=== PATIENT | female | born 1990 | race Caucasian/White ===

== ENCOUNTER → 2017-06-07 | Outpatient (CLI) | payer OTHER ==
--- NOTE | ~2017-06-07 | MR32 ---
[facility] A Service of [facility] & [facility] RADIOLOGY TEXT RESULTS PATIENT: VESTA MONAHAN LOCATION: [facility] : [birth year] UNIT #: [id number] AGE: [address]: Shreyas Lau MD SEX: F ORDER DR: [id number] [address] [id number] O MR#: [id number] Acc #: [id number] NAME: VETSA MONAHAN : 1990 SEX: F STUDY DATE/TIME: 06/07/2017 12:14 UNIT: [facility] ROOM: STUDY DESCRIPTION: MR Cervical Wo Contrast Attending Physician: Shreyas Lau M.D. Referring Physician: Shreyas Lau M.D. Ordering Physician: Shreyas Lau M.D. Primary Care Physician: Shreyas Lau M.D. MRI CENTER REPORT This report is preliminary unless electronic signature is present. EXAM MRI of the cervical spine without contrast dated 06/07/2017 COMPARISON Plain film cervical spine dated 05/16/2017. HISTORY Pain, numbness and tingling in the neck extending to the left shoulder and arm for 4-5 months. Family history of Chiari malformation. FINDINGS Multisequence, multiplanar imaging of the cervical spine was obtained without contrast. Vertebral body heights and alignment are preserved. Mild degenerative disc signal loss is noted at C3-4. Cord demonstrates normal expected course, caliber and signal. Pre- and paravertebral soft tissues do not demonstrate any significant abnormality. Tiny central focal protrusion is at C6-7 and to a much smaller extent at C5-6. IMPRESSION 1. Tiny central protrusion at C6-7. 2. No canal stenosis, neural foraminal narrowing or cord abnormality. Dictated by... Latia Surseh M.D. THIS IS AN ELECTRONICALLY VERIFIED REPORT Latia Suresh M.D. at 06/08/2017 10:45 AM CPR/mjs TD: 06/08/2017 06:16 JOB #: [id number] ST[facility]. [facility] A Service of [facility] & [facility] RADIOLOGY TEXT RESULTS PATIENT: VESTA MONAHAN LOCATION: [facility] : [birth year] UNIT #: [id number] AGE: [address]: Shreyas Lau MD SEX: F ORDER DR: MRI CENTER REPORT Page 1 of 1
== END | disposition home or self-care (01) ==
LOC: SMRI 11:12
DX: M54.2 Cervicalgia (principal); M54.12 Radiculopathy, cervical region
CPT/HCPCS: 72141